=== PATIENT | male | born 1970 | race Two or more races ===

== ENCOUNTER 2017-11-24 06:43 | Inpatient (IN) | payer OTHER ==
[~2017-11-24] VITALS: Ht 177.8 cm; Wt 99.8 kg
[2017-11-24 06:46] VITALS: Ht 177.8 cm; Wt 99.8 kg
[2017-11-24 09:18] LABS: BASOPHIL % 0.4 % (0-2); PLATELET COUNT 242 x10^3mcL (130-400); RED CELL DISTRIBUTION WIDTH 12.3 % (11.5-14.5)
[2017-11-24 09:24] LABS: CALCIUM 8.4 mg/dL (8.5-10.1); CARBON DIOXIDE 26.7 mmol/L (21-32); CHLORIDE SERUM 105 mmol/L (98-107); CREATININE SERUM 0.9 mg/dL (0.7-1.3); GFR1 > 60 mL/min; GLUCOSE SERUM 95 mg/dL (74-106); SODIUM SERUM 139 mmol/L (136-145)
[2017-11-24 09:30] LABS: ALBUMIN 3.6 g/dL (3.4-5.0); ALKALINE PHOSPHATASE 73 U/L (46-116); ALT/SGPT 60 U/L (16-63); AST/SGOT 28 U/L (15-37); BILIRUBIN TOTAL 0.8 mg/dL (0.20-1.00)
[2017-11-24 11:19] VITALS: BP 130/68
[2017-11-24 13:43] LABS: microscopic required? NO
[2017-11-24 13:53] LABS: urine erythrocyte NEGATIVE (NEGATIVE)
[2017-11-24 16:59] VITALS: BP 123/58
[2017-11-24 20:22] VITALS: BP 129/66
[2017-11-25 05:33] VITALS: BP 111/56
[2017-11-25 08:33] VITALS: BP 107/64
[2017-11-25 12:56] VITALS: BP 120/63
[2017-11-25 17:16] VITALS: BP 118/67
[2017-11-25 20:21] VITALS: BP 105/54
[2017-11-26 05:38] VITALS: BP 97/56
[2017-11-26 08:57] VITALS: BP 114/57
[2017-11-26 13:50] VITALS: BP 118/60
[2017-11-26 17:15] VITALS: BP 127/69
[2017-11-26 20:11] VITALS: BP 119/35
[2017-11-27 05:00] VITALS: BP 107/68
[2017-11-27 09:15] VITALS: BP 118/70
[2017-11-27 13:15] VITALS: BP 118/67
[2017-11-27 17:32] VITALS: BP 131/82
[2017-11-27 20:25] VITALS: BP 115/71
[2017-11-28 05:04] VITALS: BP 110/65
[2017-11-28 07:51] VITALS: BP 114/67
[2017-11-28 11:26] VITALS: BP 129/71
[2017-11-28 13:23] VITALS: BP 144/66
[2017-11-28 16:39] VITALS: BP 120/72
[2017-11-28 21:12] VITALS: BP 122/81
[2017-11-29 05:32] VITALS: BP 136/83
[2017-11-29 10:00] VITALS: BP 122/73
[2017-11-29 13:01] VITALS: BP 122/73
[2017-11-29 16:49] VITALS: BP 117/71
[2017-11-29 20:28] VITALS: BP 128/71
[2017-11-30 05:49] VITALS: BP 133/68
[2017-11-30 09:43] VITALS: BP 122/57
== END 2017-11-30 12:45 | disposition other institution (70) | DRG 552 ==
LOC: ED 06:43 → DU 09:06 → MU 11-30 10:12
PROVIDERS: Specialist
DX: M48.07 Spinal stenosis, lumbosacral region (principal); M51.17 Intervertebral disc disorders with radiculopathy, lumbosacral region; M60.9 Myositis, unspecified; S39.012A Strain of muscle, fascia and tendon of lower back, initial encounter; X58.XXXA Exposure to other specified factors, initial encounter; Y93.89 Activity, other specified; Y92.148 Other place in prison as the place of occurrence of the external cause; Y99.8 Other external cause status
CPT/HCPCS: 97110-GP; 97116-GP; 97530-GP; J1100; J1885; J3010; Q0092; Q0162